=== PATIENT | female | born 1990 | race African-American/Black ===

== ENCOUNTER 2016-06-06 07:33 | Emergency (ER) | payer SELFPAY ==
[~2016-06-06] VITALS: Ht 160 cm; Wt 56.7 kg
[~2016-06-06 07:33] MED LIST: ALBU2.5V5 IH; FLUT16SP2 NS; LORA10CA PO; LORA10TA3 PO; NITR100C62 PO; PROVENTIL HFA6.7 GM IH
[2016-06-06 07:38] VITALS: BP 113/55
[2016-06-06] MEDS ORDERED: SULF1TAB24 PO (08:41)
[2016-06-06] MEDS ORDERED: TRAM-29 PO (08:41)
--- NOTE | 2016-06-06 08:42 | PHYS DOC ---
Past Medical History Past Medical History: Asthma Additional Past Medical Histor: seasonal allergies Past Surgical History: Additional Information: Nonsmoker Alcohol Use: None Drug Use: None Adult General Chief Complaint Chief Complaint: INSECT BITE HPI HPI Patient is a 25 year old female who presents with abscess on the right buttock for 2 days. She denies fevers or drainage from the wound. She sees a PCP at [facility]. Review of Systems Review of Systems Constitutional: Denies fever or chills. [] Musculoskeletal: Denies back pain or joint pain. [] Integument: Denies rash or skin lesions. Reports right buttock abscess. Allergies Allergies Allergies Coded Allergies Type Severity Reaction Last Updated Verified No Known Drug Allergies 03/08/14 No Physical Exam Physical Exam Constitutional: Well developed, well nourished, no acute distress, non-toxic appearance. [] HENT: Normocephalic, atraumatic, oropharynx moist. [] Eyes: PERRLA, EOMI, conjunctiva normal, no discharge. [] Skin: Warm, dry, no erythema, no rash. There is a 3 cm indurated abscess on the right buttock without spontaneous drainage or surrounding cellulitis. Back: No midline tenderness, no CVA tenderness. [] Extremities: No tenderness, ROM intact, no edema. Distal pulses equal bilaterally. [] Neurologic: Alert and oriented X 3, normal motor function, normal sensory function, no focal deficits noted. [] Psychologic: Affect normal, judgement normal, mood normal. [] Current Patient Data Vital Signs Vital Signs Date Time Temp Pulse Resp B/P Pulse Ox O2 Delivery O2 Flow Rate FiO2 06/06/16 07:38 86 16 99 Room Air EKG EKG [] Radiology/Procedures Radiology/Procedures [] Course & Med Decision Making Course & Med Decision Making Pertinent Labs and Imaging studies reviewed. (See chart for details) [] Dragon Disclaimer Dragon Disclaimer This electronic medical record was generated, in whole or in part, using a voice recognition dictation system. Departure Departure Impression: Primary Impression: Abscess of buttock, right Disposition: 01 HOME, SELF-CARE Condition: STABLE Referrals: UNKNOWN PCP NAME (PCP) Patient Instructions: Abscess, [id number] Additional Instructions: Please complete all the prescribed antibiotics, even if your wound is improving. Please apply warm compresses to the wound to encourage drainage. Please take the prescribed pain medication as directed. Do not drive or operate heavy machinery while taking pain medication. Please follow-up with your doctor if your wound is worsening or not improving with treatment. Return to the emergency department if you have any new or concerning symptoms. Scripts Tramadol Hcl (Ultram)50 Mg [id number] Mg PO Q6H PRN PAIN #20 TAB Prov:PAUL SANCHEZ 06/06/16 Sulfamethoxazole/Trimethoprim (Bactrim Ds Tablet)1 Each Tablet1 Tab PO BID #14 TAB Prov:PAUL SANCHEZ 06/06/16 PAUL SANCHEZ Jun 06, 2016 08:42
== END 2016-06-06 08:53 | disposition home or self-care (01) ==
LOC: ER 07:33
DX: L02.31 Cutaneous abscess of buttock (principal); J45.909 Unspecified asthma, uncomplicated
CPT/HCPCS: 99283

== ENCOUNTER 2017-02-26 16:09 | Emergency (ER) | payer OTHER ==
[~2017-02-26] VITALS: Ht 162.6 cm; Wt 56.7 kg
[~2017-02-26 16:09] MED LIST changes: +SULF1TAB24 PO; +TRAM-48 PO
[2017-02-26 16:15] VITALS: BP 111/69
[2017-02-26] MEDS ORDERED: PRED50TA PO (16:54)
[2017-02-26] MEDS ORDERED: PROM25TA10 PO (16:54)
[2017-02-26] MEDS ORDERED: SUMA50TA3 PO (16:54)
--- NOTE | 2017-02-26 16:54 | PHYS DOC ---
Past Medical History Past Medical History: Asthma Additional Past Medical Histor: seasonal allergies Past Surgical History: Alcohol Use: None Drug Use: None Adult General Chief Complaint Chief Complaint: FLU SYMPTOM HPI HPI Patient is a 26 year old female with history of migraine headaches who presents today complaining of a productive cough, nasal congestion, and a sore throat since yesterday. Patient denies any fever. She is also complaining of a chronic migraine headache that began this morning. She has not tried anything for her migraine headache. She states she had nausea with no vomiting this morning. She describes the headache as throbbing intermittent and frontal. She is also complaining of photophobia. Denies any chance she is . She states she is in control and does not have plans of having children anytime soon. She states her cousin was dx with stage 4 brain tumor and she is concerned about having a brain tumor. Review of Systems Review of Systems Constitutional: Denies fever or chills [] Eyes: Denies change in visual acuity, redness, or eye pain [] HENT: Reports nasal congestion, denies sore throat [] Respiratory: Reports productive cough, denies shortness of breath [] Cardiovascular: No additional information not addressed in HPI [] GI: Reports nausea, denies abdominal pain, vomiting, bloody stools or diarrhea [ ] : Denies dysuria or hematuria [] Musculoskeletal: Denies back pain or joint pain [] Integument: Denies rash or skin lesions [] Neurologic: Reports frontal headache, denies focal weakness or sensory changes [ ] All other systems were reviewed and found to be within normal limits, except as documented in this note. Current Medications Current Medications Current Medications Medications (Trade) Dose Ordered Sig/Joan Start Time Stop Time Status Last Admin Dose Admin Diphenhydramine HCl (Benadryl) 25 mg 1X ONCE 02/26/17 17:00 02/26/17 17:01 DC 02/26/17 16:55 25 MG Ondansetron HCl (Zofran Odt) 4 mg 1X ONCE 02/26/17 17:00 02/26/17 17:01 DC 02/26/17 16:55 4 MG Prednisone (Prednisone) 50 mg 1X ONCE 02/26/17 17:00 02/26/17 17:01 DC 02/26/17 16:55 50 MG Sumatriptan Succinate (Imitrex) 25 mg 1X ONCE 02/26/17 17:00 02/26/17 17:01 DC 02/26/17 16:55 25 MG Allergies Allergies Allergies Coded Allergies Type Severity Reaction Last Updated Verified No Known Drug Allergies 03/08/14 No Physical Exam Physical Exam Constitutional: Well developed, well nourished, no acute distress, non-toxic appearance. [] HENT: Normocephalic, atraumatic, bilateral external ears normal, oropharynx moist, no oral exudates, nose normal. [] Eyes: PERRLA, EOMI, conjunctiva normal, no discharge. [] Neck: Normal range of motion, no tenderness, supple, no stridor. [] Cardiovascular:Heart rate regular rhythm, no murmur [] Lungs & Thorax: Bilateral breath sounds clear to auscultation [] Abdomen: Bowel sounds normal, soft, no tenderness, no masses, no pulsatile masses. [] Skin: Warm, dry, no erythema, no rash. [] Back: No tenderness, no CVA tenderness. [] Extremities: No tenderness, no cyanosis, no clubbing, ROM intact, no edema. [] Neurologic: Alert and oriented X 3, normal motor function, normal sensory function, no focal deficits noted. Cranial nerves II through XII intact Psychologic: Affect normal, judgement normal, mood normal. [] Current Patient Data Vital Signs Vital Signs Date Time Temp Pulse Resp B/P (MAP) Pulse Ox O2 Delivery O2 Flow Rate FiO2 02/26/17 16:15 98.9 110 16 100 Room Air 98.9 Lab Values Laboratory Tests Test 02/26/17 17:13 POC Urine HCG, Qualitative Hcg negative (Negative) EKG EKG [] Radiology/Procedures Radiology/Procedures []PROCEDURE: CT HEAD WO CONTRAST CT head without contrast History: Headache, sinus pressure. Comparison: None. Procedure: Axial images are obtained of the head from the skull base through the vertex without IV contrast. Exposure: One or more of the following individualized dose reduction techniques were utilized for this examination: 1. Automated exposure control 2. Adjustment of the mA and/or kV according to patient size 3. Use of iterative reconstruction technique Findings: The ventricles and sulci are normal for the patient's age. No mass-effect, intracranial mass, midline shift, hemorrhage or obvious acute infarction is identified. Basilar cisterns are patent. Bone windows demonstrate no significant calvarial abnormality. The visualized paranasal sinuses appear clear. Impression: 1. No acute intracranial process. Electronically signed by: Gatito Patel MD (02/26/2017 5:31 PM) [facility] DICTATED and SIGNED BY: GATITO PATEL MD DATE: 02/26/17 1726 CC: JOANA JAMES APRN; UNKNOWN PCP NAME ~ Course & Med Decision Making Course & Med Decision Making Pertinent Labs and Imaging studies reviewed. (See chart for details) This is a 26-year-old female patient presented to the ED today with symptoms consistent of an upper respiratory infection including cough, sore throat and nasal congestion. She is also complaining of a chronic migraine headache that began this morning though she wants to be checked for a brain tumor because the cousin had it. CT of the head was negative for any acute findings. She was given prednisone Imitrex Benadryl and Zofran in the ED. Patient will be discharged with prednisone for 4 more days, Imitrex Benadryl and promethazine. She was instructed to follow-up with the PCP which we provided in 1-2 weeks. Saltwater gargles also recommended. She did vomit prior to discharge but right after getting Zofran. We observed her in the ED for a while. She states she is feeling better. She was discharged. Dragon Disclaimer Dragon Disclaimer This electronic medical record was generated, in whole or in part, using a voice recognition dictation system. Departure Departure Impression: Primary Impression: Upper respiratory infection Additional Impressions: Cough Migraine Viral pharyngitis Disposition: 01 HOME, SELF-CARE Condition: STABLE Referrals: UNKNOWN PCP NAME (PCP) followup with your doctor in 1-2 weeks. Patient Instructions: Cough, Adult, [id number], Migraine Headache, Upper Respiratory Infection, Adult, [id number], Viral Pharyngitis Additional Instructions: You were seen with a migraine headache as well as symptoms of upper respiratory infection including cough sore throat and nasal congestion. Take the prescribed medicines as ordered. Use saltwater gargles. Follow-up with a doctor from the list provided in 1-2 weeks. Come back to the ED symptoms worsen. Scripts Promethazine Hcl (PROMETHAZINE HCL) 25 Mg Tablet 1 TAB PO PRN Q6HRS, #20 TAB Prov: JOANA JAMES APRN 02/26/17 Sumatriptan Succinate (IMITREX) 50 Mg Tablet 1 TAB PO UD, #9 TAB 1 Refill Prov: JOANA JAMES FEDERICA 02/26/17 Prednisone (PREDNISONE) 50 Mg Tablet 1 TAB PO DAILY, #4 TAB Prov: MAYRAYAAKOVJOANA Mcmullen APRN 02/26/17 Problem Qualifiers Primary Impression: Upper respiratory infection URI type: unspecified URI Qualified Codes: J06.9 - Acute upper respiratory infection, unspecified Additional Impressions: Migraine Migraine type: without aura Status migrainosus presence: without status migrainosus Intractability: not intractable Qualified Codes: G43.009 - Migraine without aura, not intractable, without status migrainosus MAYRAYAAKOVBenedictJOANA FEDERICA Feb 26, 2017 16:54
[2017-02-26] MEDS ORDERED: diphenhydrAMINE HCL 25 MG CAPSULE PO ONE (17:00)
[2017-02-26] MEDS ORDERED: predniSONE 10 MG TABLET PO ONE (17:00)
[2017-02-26] MEDS ORDERED: SUMAtriptan SUCCINATE 25 MG TABLET PO ONE (17:00)
[2017-02-26] MEDS ORDERED: ONDANSETRON ODT 4 MG TAB.RAPDIS. PO ONE (17:00)
--- NOTE | 2017-02-26 17:34 | RAD ---
CT head without contrast History: Headache, sinus pressure. Comparison: None. Procedure: Axial images are obtained of the head from the skull base through the vertex without IV contrast. Exposure: One or more of the following individualized dose reduction techniques were utilized for this examination: 1. Automated exposure control 2. Adjustment of the mA and/or kV according to patient size 3. Use of iterative reconstruction technique Findings: The ventricles and sulci are normal for the patient's age. No mass-effect, intracranial mass, midline shift, hemorrhage or obvious acute infarction is identified. Basilar cisterns are patent. Bone windows demonstrate no significant calvarial abnormality. The visualized paranasal sinuses appear clear. Impression: 1. No acute intracranial process. Electronically signed by: Gatito Patel MD (02/26/2017 5:31 PM) [facility]
== END 2017-02-26 17:50 | disposition home or self-care (01) ==
LOC: ER 16:09
DX: J06.9 Acute upper respiratory infection, unspecified (principal); G43.009 Migraine without aura, not intractable, without status migrainosus; J02.8 Acute pharyngitis due to other specified organisms; B97.89 Other viral agents as the cause of diseases classified elsewhere; J45.909 Unspecified asthma, uncomplicated; Z79.3 Long term (current) use of hormonal contraceptives
CPT/HCPCS: 70450; 81025; 99284; J7512; Q0162; Q0163

== ENCOUNTER 2017-06-10 13:55 | Emergency (ER) | payer OTHER | END 2017-06-10 14:25 | disposition home or self-care (01) | LOC: ER 13:55 | DX: M54.12 Radiculopathy, cervical region (principal); J45.909 Unspecified asthma, uncomplicated | CPT/HCPCS: 99283 ==